=== PATIENT | male | born 1955 | race Two or more races ===

== ENCOUNTER 2022-04-16 14:43 | Emergency (ER) | payer OTHER ==
[~2022-04-16] VITALS: Ht 160 cm; Wt 70.8 kg
[2022-04-16] MEDS ORDERED: CIPRO500 MG PO (17:53)
[2022-04-16] MEDS ORDERED: KETO10TA2 PO (17:53)
[2022-04-16] MEDS ORDERED: TAMS0.4C PO (17:53)
== END 2022-04-16 18:05 | disposition home or self-care (01) ==
LOC: ER 14:43
DX: N20.1 Calculus of ureter (principal); M54.9 Dorsalgia, unspecified; Z21 Asymptomatic human immunodeficiency virus [HIV] infection status; I10 Essential (primary) hypertension; Z87.442 Personal history of urinary calculi; Z95.1 Presence of aortocoronary bypass graft; Z88.2 Allergy status to sulfonamides

== ENCOUNTER 2022-04-24 15:14 | Outpatient (CLI) | payer OTHER ==
[~2022-04-24 15:14] MED LIST: CIPRO500 MG PO; KETO10TA2 PO; TAMS0.4C PO
== END 2022-04-24 15:19 | disposition home or self-care (01) ==
LOC: RAD 15:14
PROVIDERS: ATTEND General Practice
DX: B20 Human immunodeficiency virus [HIV] disease (principal)

== ENCOUNTER 2022-07-06 08:06 | Outpatient (CLI) | payer OTHER | END 2022-07-06 08:12 | disposition home or self-care (01) | LOC: TOM 08:06 | PROVIDERS: ATTEND Urology | DX: N20.1 Calculus of ureter (principal) ==